=== PATIENT | female | born 1980 | race American Indian/Alaskan Native ===

== ENCOUNTER 2020-06-01 11:59 | Inpatient (IN) | payer MEDICAID ==
[2020-06-01 13:00] LABS: Bilirubin,Urine NEG (Negative); Blood,Urine NEG (Negative); Color,Urine Yellow (Yellow); Mucus,Urine FEW /HPF; Protein,Urine <15 mg/dL mg/dL (Negative); Urobilinogen,Urine < 2.0 mg/dL (<2.0)
[2020-06-01] MEDS: LACTATED RINGERS 1,000 ML IV SCH ×2 (14:22→21:43)
[2020-06-01] MEDS: BETAMET ACET/BETAMET NA PH 6 MG/ML INJ 5 ML MDV IM SCH (14:23)
--- NOTE | 2020-06-01 16:36 | Ultrasound Report ---
ULTRASOUND OBSTETRIC LIMITED ULTRASOUND BIOPHYSICAL PROFILE INDICATION / CLINICAL INFORMATION: bleeding. COMPARISON: None available. FINDINGS: BREATHING MOVEMENT = 0 GROSS BODY MOVEMENT = 2 TONE = 2 QUALITATIVE AMNIOTIC FLUID VOLUME = 2 TOTAL BIOPHYSICAL SCORE = 6/8 AMNIOTIC FLUID INDEX (cm) = 36 PRESENTATION: Breech. HEART RATE (beats per minute): 129 ADDITIONAL FINDINGS: Cervical length 4.3 cm IMPRESSION: 1. Biophysical Score = 6/8 2. Polyhydramnios Signer Name: Kenneth Baugh MD Signed: 06/01/2020 4:31 PM Workstation Name: [id number]
[2020-06-01 21:12] LABS: Hematocrit 28.5 % (30.3-42.9); Hemoglobin 9.7 gm/dl (10.1-14.3); Mean Corpuscular HGB Conc 34 % (30-34); Mean Corpuscular Volume 101 fl (79-97); Platelet Count 292 K/mm3 (140-440); Red Blood Count 2.83 M/mm3 (3.65-5.03); Red Cell Distribution Width 14.5 % (13.2-15.2)
[2020-06-01 21:59] LABS: Total Cells Counted 100
[2020-06-01 22:00] LABS: RBC Morphology Normal
--- NOTE | 2020-06-02 13:29 | History and Physical Report ---
History of Present Illness Date of examination: 06/02/20 Date of admission: 06/01/20 16:58 Chief complaint: Abruption History of present illness: 39-year-old at 30+2 weeks who presents to labor and delivery delivery for admission after being evaluated by maternal- medicine with findings of persistent abruption and amnion separation anteriorly measuring 6.3 x 15.7 cm on ultrasound. The estimated weight is at the 14th percentile. The patient also has ultrasound findings of polyhydramnios. Is the recommendation of maternal- medicine to admit the patient for steroid therapy and prolonged observation. Past History Past Medical History: hypertension, other (Obesity) Past Surgical History: section Social history: - Obstetrical History Expected Date of Delivery: 08/09/20 Actual Gestation: 30 Week(s) 2 Day(s) : 6 Para: 3 Hx # Term Pregnancies: 3 Number of Pregnancies: 1 Spontaneous Abortions: 1 Induced : 0 Number of Living Children: 3 Medications and Allergies Allergies Allergy/AdvReac Type Severity Reaction Status Date / Time No Known Allergies Allergy Verified 06/01/20 12:12 Home Medications Medication Instructions Recorded Confirmed Last Taken Type Acetaminophen/Codeine [Tylenol #3] 1 tab PO Q6H PRN #20 tab 05/16/15 Unknown Rx Clotrimazole 1% [Lotrimin 1%] 1 applic TP QHS #1 tube 05/16/15 Unknown Rx Pnv,Calcium 72/Iron/Folic Acid 1 each PO QDAY #30 tablet 05/16/15 Unknown Rx [ Vitamin with Low Iron] Active Meds: Active Medications Lactated Ringer's (Lactated Ringers) 1,000 mls @ 125 mls/hr IV DIRECT WARREN Last Admin: 06/01/20 21:43 Dose: 125 mls/hr Documented by: Review of Systems All systems: negative Genitourinary: no vaginal bleeding, no leakage of fluid - Vital Signs Vital signs: Vital Signs Pulse Pulse Ox 98 H 99 06/01/20 12:58 06/01/20 12:58 Temp Pulse Resp BP Pulse Ox 98.3 F 86 24 102/56 100 06/01/20 20:42 06/02/20 13:21 06/01/20 20:42 06/02/20 02:31 06/02/20 13:21 - Physical Exam Breasts: Positive: deferred Cardiovascular: Regular rate Lungs: Positive: Clear to auscultation Results Result Diagrams: 06/01/20 20:34 Abnormal lab results 06/01/20 Range/Units 20:34 RBC 2.83 L (3.65-5.03) M/mm3 Hgb 9.7 L (10.1-14.3) gm/dl Hct 28.5 L (30.3-42.9) % MCV 101 H (79-97) fl MCH 34 H (28-32) pg Seg Neuts % (Manual) 91.0 H (40.0-70.0) % Lymphocytes % (Manual) 7.0 L (13.4-35.0) % Seg Neutrophils # Man 10.0 H (1.8-7.7) K/mm3 Lymphocytes # (Manual) 0.8 L (1.2-5.4) K/mm3 All other labs normal. Assessment and Plan - Patient Problems (1) Placental separation Current Visit: Yes Status: Acute Plan to address problem: Admit to labor and delivery for steroid therapy and prolonged observation (2) Advanced maternal age (AMA) in Current Visit: Yes Status: Acute (3) Morbid obesity Current Visit: Yes Status: Acute
--- NOTE | 2020-06-02 13:42 | Event Note ---
Date: 06/02/20 39-year-old -1-1-3 at 30+2 weeks who was admitted for ultrasound findings consistent with amnion separation. Further review of the patient's tracing indicates minimal variability and intermittent late decelerations. The patient has been thoroughly counseled that the recommendation is to proceed with delivery however the patient has not consented for delivery. will proceed with a NICU consult to better prepare the couple for the expectations of a premature delivery. The patient has been counseled that if she declines to proceed with delivery the prognosis for her is poor. She currently denies any vaginal bleeding or leakage of fluid. Will await the decision by the patient.
[2020-06-02] MEDS ORDERED: OXYTOCIN DRIP 30 UNITS/500 ML BAG IV SCH ×2 (14:00→17:00)
[2020-06-02] MEDS ORDERED: FAMOTIDINE 20 MG/2 ML INJ IV SCH (14:00)
[2020-06-02] MEDS ORDERED: BICITRA ORAL LIQD 30ML PO SCH (14:00)
[2020-06-02] MEDS ORDERED: METOCLOPRAMIDE 10 MG/2 ML INJ IV SCH (14:00)
[2020-06-02] MEDS ORDERED: BETAMET ACET/BETAMET NA PH 6 MG/ML INJ 5 ML MDV IM ONE (15:12)
[2020-06-02] MEDS: LACTATED RINGERS 1,000 ML IV SCH ×3 (15:17→16:09)
[2020-06-02] MEDS: BETAMET ACET/BETAMET NA PH 6 MG/ML INJ 5 ML MDV IM SCH (15:18)
--- NOTE | 2020-06-02 15:20 | Consultation ---
Consult Note - Parent Education I met with parent(s) and discussed the following:: Need for NICU admission, Poss ible need for intubation and surfactant or other resp support, Temperature regulation, Head ultrasounds to evaluate IVH, Eye exams for ROP screening, Possible need for IV fluids/TPN and IV antibiotics, Possible need for umbilical lines, Importance of providing breast milk & encouraged pumping aft delivery, Donor breast milk if baby meets criteria after , Slow feeding advancement and monitoring of tolerance. NG/OG feeds, Need to monitor for jaundice, Data for survival & survival without significant co-morbidities Parent(s) demonstrated understanding of all the information:: Yes Assessment and Plan - Assessment Gestation:: 30 (30 2) Baby's gender: Male Baby's name: undecided Additional Comment: 39YO mother with concerns of placental abruptions and amnion separation anteriorly, minimal variability and intermittent decelerations. H/O stillborn at 30weeks for skeletal dysplasia. Carrier for galactosemia. Rec's steriods x2. - Plan Plan: Agree with Mag & steroids Will attend delivery Please call NICU with questions
--- NOTE | 2020-06-02 15:56 | Anesthesia Day of Surgery ---
Anesthesia Day of Surgery - Day of Surgery Patient Examined: Yes Patient H&P Reviewed: Yes Patient is NPO: Yes Beta Blockers: No Cardiac Clearance: No Pulmonary Clearance: No
--- NOTE | 2020-06-02 15:56 | Anesthesia Consultation ---
Anesthesia Consult and Med Hx Date of service: 06/02/20 - Airway Anesthetic Teeth Evaluation: Good ROM Head & Neck: Adequate Mental/Hyoid Distance: Adequate Mallampati Class: Class III Intubation Access Assessment: Possibly Difficult - Pulmonary Exam CTA: Yes - Cardiac Exam Cardiac Exam: RRR - Pre-Operative Health Status ASA Pre-Surgery Classification: ASA3 Proposed Anesthetic Plan: Spinal - Pulmonary Hx Smoking: No Hx Asthma: No Hx Sleep Apnea: No - Cardiovascular System Hx Hypertension: No Hx Heart Attack/AMI: No Hx Angina: No - Central Nervous System Hx Seizures: No Hx Psychiatric Problems: Yes (PTSD & Depression) - Gastrointestinal Hx Gastroesophageal Reflux Disease: No - Endocrine Hx Renal Disease: No Hx Insulin Dependent Diabetes: No Hx Non-Insulin Dependent Diabetes: No Hx Hypothyroidism: No Hx Hyperthyroidism: No - Hematic Hx Anemia: Yes (PNV and Fe) Hx Sickle Cell Disease: No - Other Systems Hx Alcohol Use: No Hx Obesity: Yes
[2020-06-02] MEDS ORDERED: ceFAZolin/STERILE WATER 2 GM/20 ML SYRINGE IV ONE (16:20)
--- NOTE | 2020-06-02 16:30 | Event Note ---
Date: 06/02/20 The patient and her spouse have completed discussion with the ICU team discussing the expectations of a infant. The patient has elected to proceed with a repeat delivery for nonreassuring heart rate tracing.
--- NOTE | 2020-06-02 16:31 | Procedure Note ---
OB Delivery Note - Delivery Date of Delivery: 06/02/20 Surgeon: VENITA LATHAM Estimated blood loss: 1000cc - Section Preop diagnosis: repeat , nonreassuring FHR tracing Postop diagnosis: same section procedure: section Disposition: PACU Complications: none - Infant A at 1 minute: 7 at 5 minutes: 8 Gender: Male (Weight 3 pounds 0 ounces)
--- NOTE | 2020-06-02 16:33 | Operative Report ---
Operative Report Operative Report: Date of surgery: June 02, 2020 Preoperative diagnosis: @30+2 weeks; nonreassuring heart rate tracing; amnion separation; suspect placental abruption; morbid obesity Postoperative diagnosis: Same as above; placental abruption Procedure: Repeat low transverse delivery Surgeon: Mara Arzate M.D. Anesthesia: Regional Estimated blood loss: 1000 mL IV fluids: 1400 mL Urine output: 50 mL Findings: Liveborn male with Apgars of 7 and 8 weight 3 pounds 0 ounces Indications: 39-year-old at 30+2 weeks who was admitted to labor and delivery for evidence of amnion separation on ultrasound. During the patient's intrapartum admission her tracing demonstrated minimal to no variability and intermittent late decelerations. The patient was counseled for the above procedure. Procedure: The patient was taken to the operating room and given regional anesthesia without complication. She was prepped and draped in a normal sterile fashion. A Pfannenstiel skin incision was made down to layer the fascia which was nicked in the midline extended laterally with the Bovie cautery. The superior aspect of the rectus fascia was grasped with [place] clamps x2 and the rectus muscles off sharply. This was done in inferior fashion as well. The rectus muscle midline and peritoneum entered bluntly. An John retractor was then inserted. A bladder blade was placed. The vesicouterine peritoneum was then entered sharply with Metzenbaum scissors. A bladder flap was created digitally. A low transverse uterine incision was then made and extended digitally. There was a copious amount of blood stained fluid upon entry into the uterine cavity. The legs were delivered through the incision with fundal pressure. The body and head delivered easily. The cord was clamped and cut x2 after delayed cord clamping and was passed off to pediatrics. The placenta was then manually extracted. The uterus was not exteriorized. The uterine cavity was swept of clots and debris. The uterine incision was then closed in a running locked fashion with 0 Vicryl and additional imbricating stitch was applied for 2 layer closure. The posterior cul-de-sac was then copiously irrigated. The abdomen and pelvis were the gutters were then irrigated. The John retractor was then removed. The peritoneum was then reapproximated with 3-0 Vicryl incorporating the rectus muscle. The fascia was then closed with 0 Vicryl in a running fashion. The skin was then reapproximated with 3-0 Monocryl on a [place] needle subcuticular fashion. Steri-Strips to place across the incision and a Crede procedures performed at the end of the surgery. A pressure dressing was applied to the incision. The surgery productive of a liveborn male with Apgars of 7 and 8 weight 3 pounds 0 ounces. The patient was taken to the recovery room in stable condition. All sponge laps and needle counts correct x2.
[2020-06-02] MEDS ORDERED: ONDANSETRON 4 MG/2 ML INJ ONE (16:43)
[2020-06-02] MEDS ORDERED: BUPIVACAINE /DEX-WATER 0.75% (2 ML) AMPULE INFILTRATI ONE (16:43)
[2020-06-02] MEDS ORDERED: PHENYLEPHRINE/NS 1,000 MCG/10 ML SYRINGE (OR USE) IV ONE (16:43)
[2020-06-02] MEDS ORDERED: KETOROLAC 30 MG/1 ML INJ ONE (16:43)
[2020-06-02] MEDS ORDERED: ACETAMINOPHEN 325 MG TAB PO PRN (17:00)
[2020-06-02] MEDS ORDERED: KETOROLAC 30 MG/1 ML INJ IV PRN (17:00)
[2020-06-02] MEDS ORDERED: NALOXONE 0.4 MG/1 ML INJ IV PRN ×2 (17:00→17:38)
[2020-06-02] MEDS ORDERED: MORPHINE 4 MG/1 ML INJ IV PRN (17:00)
[2020-06-02] MEDS ORDERED: IBUPROFEN 600 MG TAB PO PRN (17:00)
[2020-06-02] MEDS ORDERED: WITCH HAZEL/ GLYCERIN PAD TP PRN (17:00)
[2020-06-02] MEDS ORDERED: ONDANSETRON 4 MG/2 ML INJ IV PRN ×2 (17:00→17:38)
[2020-06-02] MEDS ORDERED: NalbUPHINE 10 MG/1 ML INJ IV PRN (17:38)
[2020-06-02] MEDS ORDERED: PROMETHAZINE 25 MG TAB PO PRN (17:38)
[2020-06-02] MEDS ORDERED: diphenhydrAMINE 50 MG/ML VIAL IV PRN (17:38)
[2020-06-02] MEDS ORDERED: PROMETHAZINE 25 MG RECT SUPP PR PRN (17:38)
--- NOTE | 2020-06-02 17:38 | Progress Note ---
Spinal Anesthesia Block - Spinal Anesthesia Block Start Time: 16:17 Stop Time: 16:30 Performed by:: SARAH NASSAR Procedure: Spinal anesthesia block is being performed for [C/S]. H&P, labs have been reviewed. Patient's questions and concerns have been answered. Informed consent has been performed. Timeout has was performed. Patient in sitting position on side of bed. Sterile prep and drape was performed. 3 mL 1% lidocaine skin wheal at L [3]-L [4]. Needle introducer advanced. 25-gauge spinal needle advanced, [+] CSF [-] blood. [] Spinal dose was given. All needles removed. Patient tolerated procedure well.
[2020-06-03] MEDS: oxyCODONE /ACETAMINOPHEN 5-325MG TAB PO PRN ×2 (02:42→18:08)
[2020-06-03 05:43] LABS: Hematocrit 23.7 % (30.3-42.9)
--- NOTE | 2020-06-03 08:33 | Progress Note ---
Assessment and Plan A: S/p rLTCS, POD1 delivery at 30w2d due to NRFHTs (originally admitted due to partial abruption/amnion separation) Acute anemia d/t PPH, Hgb 9.7 to 8.0 VSS to NICU Pain well controlled Pumping colostrum P: Continue to monitor clinical status closely Repeat CBC Ferrous sulfate supplementation Continue pumping q2-3h, hand expression, consult Subjective - Subjective Date of service: 06/03/20 Principal diagnosis: S/p rLTCS Interval history: S/p rLTCS for placental abruption, POD1 Patient reports: pain well controlled, flatus, ambulating normally, no voiding normally (catheter removed 06/03 at 0500, no void yet), no dizzy ambulation : in NICU, bottle feeding (bottle and pumped/hand expressed colostrum) Objective - Vital Signs Latest vital signs: Vital Signs Temp Pulse Resp BP Pulse Ox 06/03/20 05:10 97.4 F L 73 20 104/73 97 06/03/20 02:42 18 06/03/20 00:32 97.5 F L 60 20 115/66 99 06/03/20 00:07 18 06/02/20 18:45 97.5 F L 72 14 104/50 99 06/02/20 18:30 67 14 105/48 100 06/02/20 18:15 76 13 90/66 99 06/02/20 18:00 77 11 L 88/43 100 06/02/20 17:45 80 16 100/50 99 06/02/20 17:40 79 12 103/47 100 06/02/20 17:35 97.4 F L 78 25 H 98/49 97 06/02/20 15:57 106 H 100 06/02/20 15:52 92 H 100 06/02/20 15:47 85 100 06/02/20 15:42 80 100 06/02/20 15:37 69 100 06/02/20 15:32 78 100 06/02/20 15:27 78 100 06/02/20 15:22 82 100 06/02/20 15:17 72 100 06/02/20 15:12 73 100 06/02/20 15:01 94 H 100 06/02/20 14:56 83 100 06/02/20 14:51 86 100 06/02/20 14:46 83 100 06/02/20 14:41 90 100 06/02/20 14:36 83 100 06/02/20 14:31 77 100 06/02/20 14:26 84 100 06/02/20 14:21 76 100 06/02/20 14:16 79 100 06/02/20 14:11 79 100 06/02/20 14:06 90 100 06/02/20 14:01 82 100 06/02/20 13:56 81 100 06/02/20 13:51 95 H 100 06/02/20 13:46 91 H 100 06/02/20 13:41 107 H 98 06/02/20 13:21 86 100 06/02/20 13:16 102 H 100 06/02/20 13:11 86 100 06/02/20 13:06 89 99 06/02/20 13:01 90 99 06/02/20 12:56 87 99 06/02/20 12:51 93 H 99 06/02/20 12:46 91 H 99 06/02/20 12:41 82 98 06/02/20 12:36 89 98 06/02/20 12:31 79 98 06/02/20 12:26 87 98 06/02/20 12:21 78 97 06/02/20 12:16 79 98 06/02/20 12:11 78 99 06/02/20 12:06 76 100 06/02/20 12:01 85 99 06/02/20 11:56 86 98 06/02/20 11:51 79 99 06/02/20 11:46 85 98 06/02/20 11:41 82 99 06/02/20 11:36 86 98 06/02/20 11:31 100 H 84 06/02/20 11:26 82 98 06/02/20 11:21 84 98 06/02/20 11:16 92 H 98 06/02/20 11:11 89 100 06/02/20 11:06 79 99 06/02/20 11:01 88 99 06/02/20 10:56 89 99 06/02/20 10:51 90 99 06/02/20 10:46 85 98 06/02/20 10:41 89 98 06/02/20 10:36 90 99 06/02/20 10:31 93 H 98 06/02/20 10:26 86 99 06/02/20 10:21 88 99 06/02/20 10:16 88 99 06/02/20 10:11 85 100 06/02/20 10:06 90 99 06/02/20 09:51 89 99 06/02/20 09:46 91 H 98 06/02/20 09:41 97 H 98 06/02/20 09:36 111 H 98 06/02/20 09:31 88 99 06/02/20 09:26 91 H 100 06/02/20 09:21 90 99 06/02/20 09:16 101 H 99 06/02/20 09:11 88 99 06/02/20 09:06 85 99 06/02/20 09:01 88 98 06/02/20 08:56 91 H 100 06/02/20 08:51 98 H 100 06/02/20 08:46 107 H 100 06/02/20 08:41 86 99 06/02/20 08:36 92 H 99 06/02/20 08:31 91 H 99 Intake and Output 06/02/20 06/03/20 06/03/20 23:59 07:59 15:59 Intake Total 1637.5 240 Output Total 750 200 Balance 887.5 40 Intake: IV 1637.5 Lactated Ringers 1,000 ml 37.5 @ 2250 mls/hr IV PREOP [facility] Rx#:[id number] Oral 240 Output: Urine 750 200 Uretheral ([place]) 400 200 Other: Total, Intake Amount 240 - Exam Breasts: Present: normal Lungs: Present: Normal air movement Abdomen: Present: normal appearance, soft. Absent: distention, tenderness Uterus: Present: normal, firm, fundal height below umbilicus. Absent: bogginess, tenderness Extremities: Present: normal Incision: Present: dressed - Labs Labs: Abnormal lab results 06/03/20 Range/Units 04:54 Hgb 8.0 L (10.1-14.3) gm/dl Hct 23.7 L (30.3-42.9) %
--- NOTE | 2020-06-03 10:21 | Post Anesthesia Evaluation ---
- Post Anesthesia Evaluation Patient Participated: Yes Airway Patent: Yes Stable Respiratory Function: Yes Nausea/Vomiting: No Temp > 96.8F: Yes Pain Manageable: Yes Adequeate Hydration: Yes Anesthesia Complications: No Block Receding Appropriately: Yes Patient on Ventilator: No
[2020-06-03 15:02] LABS: Hematocrit 23.4 % (30.3-42.9); Hemoglobin 7.8 gm/dl (10.1-14.3)
[2020-06-04] MEDS: oxyCODONE /ACETAMINOPHEN 5-325MG TAB PO PRN (05:54)
--- NOTE | 2020-06-04 08:17 | Progress Note ---
Assessment and Plan A: POD2 s/p rLTCS for placental abruption Severe acute anemia due to blood loss VSS Gas pain Pumping colostrum P: Transfuse 1 unit PRBC, pt accepts Bowel regimen Closely monitor clinical status Subjective - Subjective Date of service: 06/04/20 Principal diagnosis: S/p rLTCS Interval history: S/p rLTCS at 30 weeks for placental abruption, POD2 Patient reports: appetite normal, voiding normally, dizzy ambulation (x1 episode), flatus, ambulating normally, no pain well controlled (pt reports gas pain), no bowel movement [place]: in NICU Objective - Vital Signs Latest vital signs: Vital Signs Temp Pulse Resp BP Pulse Ox 06/04/20 06:42 18 06/04/20 05:54 18 06/04/20 01:19 98.0 F 76 20 109/69 100 06/03/20 19:08 18 06/03/20 12:19 97.9 F 84 20 107/57 100 Intake and Output 06/03/20 06/04/20 06/04/20 23:59 07:59 15:59 Intake Total 480 360 Output Total 200 300 Balance 280 60 Intake: Oral 240 360 Intake, Free Water 240 Output: Urine 200 300 Void 200 300 Other: Total, Intake Amount 240 360 Total, Output Amount 200 300 # Voids Void 1 1 - Exam Abdomen: Present: soft. Absent: distention, guarding Uterus: Present: firm, fundal height below umbilicus. Absent: bogginess Extremities: Present: normal Incision: Present: dressed - Labs Labs: Abnormal lab results 06/03/20 Range/Units 14:00 Hgb 7.8 L (10.1-14.3) gm/dl Hct 23.4 L (30.3-42.9) %
[2020-06-04] MEDS ORDERED: diphenhydrAMINE 25 MG CAP PO PRN (08:30)
[2020-06-04] MEDS ORDERED: SODIUM CHLORIDE 0.9% 500 ML 500 ML IV SCH ×2 (09:00→11:00)
[2020-06-04] MEDS: MAGNESIUM HYDROXIDE (MOM) ORAL LIQD UDC PO SCH ×2 (10:06→15:59)
[2020-06-04] MEDS ORDERED: SODIUM CHLORIDE 0.9% 500 ML 500 ML IV NR (11:46)
[2020-06-04] MEDS: IBUPROFEN 800 MG TAB PO PRN (21:41)
[2020-06-05 01:56] LABS: Hematocrit 24.4 % (30.3-42.9); Hemoglobin 8.2 gm/dl (10.1-14.3)
[2020-06-05] MEDS: IBUPROFEN 800 MG TAB PO PRN ×2 (05:31→17:42)
--- NOTE | 2020-06-05 10:28 | Progress Note ---
Assessment and Plan - Patient Problems (1) Placental separation Current Visit: Yes Status: Acute Plan to address problem: will discharge patient tomorrow (2) Advanced maternal age (AMA) in Current Visit: Yes Status: Acute (3) Morbid obesity Current Visit: Yes Status: Acute Subjective - Subjective Date of service: 06/05/20 Principal diagnosis: S/p rLTCS Interval history: 39-year-old status post a repeat delivery for placental abruption. The patient reports some intermittent incisional pain. She is tolerating regular diet and voiding without difficulty. The infant remains admitted to the NICU for prematurity. Patient reports: appetite normal, voiding normally : in NICU Objective - Vital Signs Latest vital signs: Vital Signs Temp Pulse Resp BP BP Pulse Ox 06/05/20 08:50 97.9 F 69 20 121/70 06/05/20 00:48 98.2 F 75 20 136/84 100 06/04/20 18:29 98.2 F 74 18 109/69 06/04/20 17:59 98.0 F 78 18 116/72 06/04/20 17:29 97.9 F 77 20 120/64 06/04/20 16:59 97.8 F 85 20 123/72 06/04/20 16:29 97.8 F 81 18 119/70 100 06/04/20 16:14 97.8 F 79 18 114/71 100 06/04/20 15:30 97.9 F 81 20 114/67 Intake and Output 06/04/20 06/05/20 06/05/20 22:59 06:59 14:59 Intake Total 1060 480 120 Balance 1060 480 120 Intake: Oral 1060 480 120 Blood Product 0 Leukoreduced Red Blood 0 Cells Unit [id number] Other: Total, Intake Amount 240 240 120 # Voids Void 1 1 1 - Labs Labs: Abnormal lab results 06/01/20 06/01/20 06/05/20 Range/Units 20:34 20:34 01:27 RBC 2.83 L (3.65-5.03) M/mm3 Hgb 9.7 L 8.2 L (10.1-14.3) gm/dl Hct 28.5 L 24.4 L (30.3-42.9) % MCV 101 H (79-97) fl MCH 34 H (28-32) pg Seg Neuts % (Manual) 91.0 H (40.0-70.0) % Lymphocytes % (Manual) 7.0 L (13.4-35.0) % Seg Neutrophils # Man 10.0 H (1.8-7.7) K/mm3 Lymphocytes # (Manual) 0.8 L (1.2-5.4) K/mm3 Crossmatch See Detail
--- NOTE | 2020-06-05 10:30 | Discharge Summary ---
Providers - Providers Date of Admission: 06/02/20 16:33 Date of discharge: 06/06/20 Attending physician: VENITA LATHAM 06/03/20 08:35 Consult to Fashion Stylist [CONS] Routine Reason For Exam: Primary care physician: VENITA LATHAM Hospitalization Reason for admission: section Delivery: Procedure: section, repeat low transverse Discharge diagnosis: delivery Hospital course: The patient was admitted for findings of placental abruption. tracing demonstrated nonreassuring tracing and the patient was taken for a repeat delivery. See operative note for details of surgery. Her postoperativ e course was uneventful. Condition at discharge: Good Disposition: DC-01 TO HOME OR SELFCARE - Discharge Diagnoses (1) Placental separation Status: Acute (2) Advanced maternal age (AMA) in Status: Acute (3) Morbid obesity Status: Acute Plan - Discharge Medications Prescriptions: Ibuprofen [Motrin] 800 mg PO Q8HR PRN #60 tablet PRN Reason: Pain , Severe (7-10) oxyCODONE /ACETAMINOPHEN [Percocet 5/325] 1 tab PO Q6HR PRN #30 tablet PRN Reason: Pain - Provider Discharge Summary Activity: no sex for 6 weeks, no heavy lifting 4 weeks, no strenuous exercise Diet: routine Instructions: routine Additional instructions: [] Smoking cessation referral if applicable(refer to patient education folder for contact #) [] Refer to [facility]'s [facility] Booklet Call your doctor immediately for: * Fever > 100.5 * Heavy vaginal bleeding ( >1 pad per hour) * Severe persistent headache * Shortness of breath * Reddened, hot, painful area to leg or breast * Drainage or odor from incision. * Keep incision clean and dry at all times and follow doctor's instructions regarding bathing/showering Schedule follow-up in 2 weeks - Follow up plan
[2020-06-05] MEDS: oxyCODONE /ACETAMINOPHEN 5-325MG TAB PO PRN ×2 (11:49→23:48)
[2020-06-06] MEDS: IBUPROFEN 800 MG TAB PO PRN ×2 (01:48→11:36)
[2020-06-06] MEDS ORDERED: LORazepam 2 MG/ML VIAL ONE (02:30)
[2020-06-06] MEDS ORDERED: LORazepam 2 MG/ML VIAL IV ONE (02:31)
[2020-06-06] MEDS: oxyCODONE /ACETAMINOPHEN 5-325MG TAB PO PRN (06:09)
[2020-06-06] MEDS: LANOLIN/ZINC/DIMETHICONE (LANSINOH) 7 GM TP PRN ×2 (08:00→12:11)
--- NOTE | 2020-06-06 10:43 | Consultation ---
History of Present Illness - Reason for Consult Consult date: 06/06/20 Reason for consult: depression score - History of Present Psychiatric Illness Etienne Pitt is a 39y/o female who as admitted into the hospital for child . During my interview with the patient this morning, she is sitting in bed awake. She is a/o x 3. When asking the patient if she knew why psych was consulted, she stated "it's probably because of the answer I put on that questionnaire." The patient then becomes tearful. She verbalizes being depressed, but states she's been feeling like this "since the last ." The patient states "I lost a baby about a year ago and was scared something would happen to this one." She also states, "and it makes it worse now, because I can't take him home with me now." She says due to prematurity the baby has to stay. She says she was diagnosed with "ptsd and depression" in the past but was never prescribed meds. She says she did therapy instead. The patient states she is not ready to start any medications at this time. She denies any illicit drug use, alcohol or nicotine. She denies SI/HI or hallucinations of any kind. She says "I haven't felt like that at all." PAST PSYCHIATRIC HISTORY Diagnoses: PTSD, depression Suicide attempts or Self-harm behavior: Denies Prior psychiatric hospitalizations: Denies Substance Abuse history: Denies Previous psychiatric medications tried: Denies Outpatient treatment: Denies PAST MEDICAL HISTORY: None reported Family Psychiatric History: None reported or documented SOCIAL HISTORY Marital Status: Living Arrangements: with family Employment Status: employed Access to guns/weapons: Denies Education: High school diploma History of Abuse: None reported Legal History: denies REVIEW OF SYSTEMS Constitutional: Negative for weight loss ENT: Negative for stridor Respiratory: Negative for cough or hemoptysis All other systems reviewed and are negative MENTAL STATUS EXAMINATION General Appearance and Behavior: Age appropriate, good hygiene, wearing appropriate clothes, good eye contact, calm and cooperative Cooperation: Participating/engaged Psychomotor Behavior: Psychomotor normal Mood: "depressed" Affect and affective range: congruent with stated mood, tearful Thought Process: Goal directed Thought Content: Denies Speech: Normal rate, volume and rhythm Suicidal Ideation: Denies Homicidal Ideation: Denies Hallucinations: Denies Delusions: None elicited Impulse Control: Impaired Insight and Judgment: Normal insight and judgment Memory: Normal Attention: Normal Orientation: Alert, oriented Assessment and Plan (1)Major Depressive Disorder Treatment Discussed with the patient the need to restart therapy and consider an antidepressant. The patient is unwilling to start meds at this time. No meds prescribed Sitter: Defer to primary Medical: Per primary Disposition: Do not recommend acute psychiatric inpatient treatment at this time. The patient is to reestablish outpatient psychiatry and cognitive behavior therapy The head host/hostess is to give outpatient resources She is to follow up with outpatient psych in 7 to 14 days upon discharge. Will sign off. Thank you for this consult. Case staffed with Dr. Mcfarlane. Medications and Allergies Allergies Allergy/AdvReac Type Severity Reaction Status Date / Time No Known Allergies Allergy Verified 06/01/20 12:12 Home Medications Medication Instructions Recorded Confirmed Last Taken Type Acetaminophen/Codeine [Tylenol #3] 1 tab PO Q6H PRN #20 tab 05/16/15 06/04/20 Unknown Rx Clotrimazole 1% [Lotrimin 1%] 1 applic TP QHS #1 tube 05/16/15 06/04/20 Unknown Rx Pnv,Calcium 72/Iron/Folic Acid 1 each PO QDAY #30 tablet 05/16/15 06/04/20 Unknown Rx [ Vitamin with Low Iron] Ibuprofen [Motrin] 800 mg PO Q8HR PRN #60 tablet 06/05/20 Unknown Rx oxyCODONE /ACETAMINOPHEN [Percocet 1 tab PO Q6HR PRN #30 tablet 06/05/20 Unknown Rx 5/325] Active Meds: Active Medications Acetaminophen (Acetaminophen 325 Mg Tab) 650 mg PO Q4H PRN PRN Reason: Fever >100.5/TANNER Last Admin: 06/04/20 16:00 Dose: 650 mg Documented by: Diphenhydramine HCl (Diphenhydramine 50 Mg/Ml Vial) 12.5 mg IV Q2H PRN PRN Reason: Itching Diphenhydramine HCl (Diphenhydramine 25 Mg Cap) 25 mg PO Q6H PRN PRN Reason: Itching Last Admin: 06/04/20 16:00 Dose: 25 mg Documented by: Oxytocin/Sodium Chloride (Pitocin/Ns 30 Unit/500ml) 30 units in 500 mls @ 40 mls/hr IV TITR WARREN; Protocol Last Admin: 06/02/20 19:27 Dose: 125 ml/hr, 125 mls/hr Documented by: Ibuprofen (Ibuprofen 800 Mg Tab) 800 mg PO Q6H PRN PRN Reason: Pain, Mild (1-3) Last Admin: 06/06/20 01:48 Dose: 800 mg Documented by: Ketorolac Tromethamine (Ketorolac 30 Mg/1 Ml Inj) 30 mg IV Q6H PRN PRN Reason: Pain, Moderate (4-6) Stop: 06/07/20 16:59 Last Admin: 06/03/20 00:07 Dose: 30 mg Documented by: Morphine Sulfate (Morphine 4 Mg/1 Ml Inj) 4 mg IV Q4H PRN PRN Reason: Pain , Severe (7-10) Multi-Ingredient Ointment (Lanolin/Zinc/Dimethicone (Lansinoh) 7 Gm) 1 applic TP PRN PRN PRN Reason: dryness/cracking Nalbuphine HCl (Nalbuphine 10 Mg/1 Ml Inj) 2.5 mg IV Q2H PRN PRN Reason: Itching Naloxone HCl (Naloxone 0.4 Mg/1 Ml Inj) 0.2 mg IV Q2MIN PRN PRN Reason: Res Rate </= 8 or 02 SAT < 92% Ondansetron HCl (Ondansetron 4 Mg/2 Ml Inj) 4 mg IV Q8H PRN PRN Reason: Nausea And Vomiting Oxycodone/Acetaminophen (Oxycodone /Acetaminophen 5-325mg Tab) 2 tab PO Q4H PRN PRN Reason: Pain, Moderate (4-6) Last Admin: 06/06/20 06:09 Dose: 1 tab Documented by: Promethazine HCl (Promethazine 25 Mg Tab) 25 mg PO Q6H PRN PRN Reason: Nausea And Vomiting Promethazine HCl (Promethazine 25 Mg Rect Supp) 25 mg IA Q6H PRN PRN Reason: Nausea And Vomiting Sodium Chloride (Sodium Chloride 0.9% 10 Ml Flush Syringe) 10 ml IV PRN PRN PRN Reason: flush Witch Lauryn/Glycerin (Witch Lauryn/ Glycerin Pad) 1 each TP PRN PRN PRN Reason: Hemorrhoids/cleansing/soothing Mental Status Exam - Vital signs Last Vital Signs Temp 97.4 F L 06/06/20 09:03 Pulse 64 06/06/20 09:03 Resp 18 06/06/20 09:03 BP 135/84 06/06/20 09:03 Pulse Ox 96 06/06/20 09:03 Results Result Diagrams: 06/05/20 01:27 All other labs normal.
[2020-06-06 11:33] VITALS: BP 122/72
== END 2020-06-06 12:19 | disposition home or self-care (01) | DRG 765 ==
LOC: TRG 11:59 → APU 12:00 → LD 16:16 → TRG 16:57 → LD 16:58 → OBSVTOIN 06-02 16:33 → OB 06-02 19:09
PROVIDERS: ADMIT Obstetrics & Gynecology; ATTEND Obstetrics & Gynecology
PROC: 30233N1 Transfusion of Nonautologous Red Blood Cells into Peripheral Vein, Percutaneous Approach (ICD-10-PCS; 2020-06-01)
PROC: 10D00Z1 Extraction of Products of Conception, Low, Open Approach (ICD-10-PCS; principal; 2020-06-02)
PROC: 3E0R3BZ Introduction of Anesthetic Agent into Spinal Canal, Percutaneous Approach (ICD-10-PCS; 2020-06-03)
DX: O76 Abnormality in fetal heart rate and rhythm complicating labor and delivery (principal); O45.93 Premature separation of placenta, unspecified, third trimester; O60.14X0 Preterm labor third trimester with preterm delivery third trimester, not applicable or unspecified; D62 Acute posthemorrhagic anemia; O34.219 Maternal care for unspecified type scar from previous cesarean delivery; O99.214 Obesity complicating childbirth; E66.01 Morbid (severe) obesity due to excess calories; O16.4 Unspecified maternal hypertension, complicating childbirth; O99.02 Anemia complicating childbirth; O99.344 Other mental disorders complicating childbirth; F32.9 Major depressive disorder, single episode, unspecified; Z37.0 Single live birth; Z3A.30 30 weeks gestation of pregnancy; Z20.828 Contact with and (suspected) exposure to other viral communicable diseases
CPT/HCPCS: 36415; 76815; 76819; 81001; 85007; 85014; 85018; 85025; 86850; 86900; 86901; 86920; 88307; G0378; A6250; J0690; J0702; J1885; J2370; J2405; J2590; J2765; J3490; J7120; P9016; U0003